=== PATIENT | male | born 1940 | race Caucasian/White ===

== ENCOUNTER 2018-03-16 12:02 | Inpatient (IN) | payer MEDICARE ==
[2018-03-16] MEDS ORDERED: Labetalol 100 MG/20 ML MDV IVPUSH ONE (12:50)
--- NOTE | 2018-03-16 12:55 | EDM.PDOC ---
ED HPI GENERAL MEDICAL PROBLEM - General Chief Complaint: Neurological Problem Stated Complaint: confusion Time Seen by Provider: 03/16/18 12:30 Source of Information: Reports: EMS, Family History Limitations: Reports: Altered Mental Status - History of Present Illness INITIAL COMMENTS - FREE TEXT/NARRATIVE: Jerzy is a 77 year old male who presents to the ED via [facility] with c/o AMS. Apparently patient did not show up for breakfast per usual at neighbors this morning so neighbor went to house to check on him. Found patient to be very confused. Reports he went to car and tried to start car with wallet and cellphone rather than keys. Reports patient had slurred speech and was much more confused than baseline so called EMS. Do report he has been more confused over the last month or so. Does have dementia. Daughter reports that the last month or so patient has also been incontinent of urine and his hygiene hasn't been as good. Last known well last evening. NIH 5 upon presentation. Very hard to perform neuro assessment as patient is confused and does not follow commands. Unable to obtain ROS due to AMS. Associated Symptoms: Reports: Confusion. Denies: Chest Pain, Cough, cough w sputum, Malaise, Syncope - Related Data Allergies Allergy/AdvReac Type Severity Reaction Status Date / Time [place]-Y[place]-Rad Reductase Allergy Other Verified 03/16/18 16:15 Inhibitor Home Meds: Home Meds Aspirin/Calcium Carbonate/Mag [Aspirin Buffered 325 mg Tab] 325 mg PO DAILY [History] Lisinopril/Hydrochlorothiazide [Zestoretic 20-12.5 mg Tablet] 1 each PO DAILY [History] Ubidecarenone [Co Q-10 ER] 100 mg PO BID 10/24/13 [History] metFORMIN HCl [Metformin HCl] 1,000 mg PO BID 10/24/13 [History] Cholecalciferol (Vitamin D3) [Vitamin D3] 4,000 unit PO BID 03/16/18 [History] Donepezil HCl [Aricept] 15 mg PO BEDTIME 03/16/18 [History] Gluc 2KCl/Chondr/Jonathan Hy/Hy Ac [Glucosamine & Chondroitin Cap] 1 cap PO BID 08/25 [History] Lutein/Minerals/Vit A,C & E [I-Garrick] 1 tab PO BID 03/16/18 [History] Red Yeast Rice 1 cap PO DAILY 03/16/18 [History] ED ROS GENERAL - Review of Systems Review Of Systems: Unable To Obtain (AMS) ED EXAM, NEURO - Physical Exam Exam: See Below Exam Limited By: Altered Mental Status General Appearance: Alert, WD/WN, No Apparent Distress, Other (unkempt, smells of urine) Eye Exam: Bilateral Eye: EOMI, Normal Fundi, Normal Inspection, PERRL Ears: Normal External Exam, Normal Canal, Hearing Grossly Normal, Normal TMs Nose: Normal Inspection, Normal Mucosa, No Blood Throat/Mouth: Normal Inspection, Normal Lips, Normal Teeth, Normal Gums, Normal Oropharynx, Normal Voice, No Airway Compromise Head Exam: Atraumatic, Normocephalic Neck: Normal Inspection, Supple, Non-Tender, Full Range of Motion Respiratory/Chest: No Respiratory Distress, Lungs Clear, Normal Breath Sounds, No Accessory Muscle Use, Chest Non-Tender Cardiovascular: Normal Peripheral Pulses, Regular Rate, Rhythm, No Edema, No Gallop, No JVD, No Murmur, No Rub GI/Abdominal: Normal Bowel Sounds, Soft, Non-Tender, No Organomegaly, No Distention, No Abnormal Bruit, No Mass Neurological: Alert, Normal Gait, No Motor/Sensory Deficits, Other (oriented to self only, disoriented to time, place, and situation) Back Exam: Normal Inspection, Full Range of Motion. No: CVA Tenderness (L), CVA Tenderness (R) Extremities: Normal Inspection, Normal Range of Motion, Non-Tender, No Pedal Edema, Normal Capillary Refill Course - Vital Signs Last Recorded V/S: Last Vital Signs Temp 99.1 F 03/16/18 20:00 Pulse 80 03/16/18 21:34 Resp 20 03/16/18 20:00 BP 194/90 H 03/16/18 21:34 Pulse Ox 96 03/16/18 20:00 - Orders/Labs/Meds Orders: Active Orders 24 hr Category Date Time Status Chest 1V Frontal [CR] Stat Exams 03/16/18 14:23 Taken Head wo Cont [CT] Routine Exams 03/16/18 Taken MISC TEST Stat Lab 03/16/18 13:57 Received Medication Orders Ceftriaxone Sodium (Rocephin) 1 gm IVPUSH 1600 [facility] Last Admin: 03/16/18 17:09 Dose: 1 gm Donepezil HCl (Aricept) 15 mg PO BEDTIME [facility] Last Admin: 03/16/18 19:34 Dose: 15 mg Enoxaparin Sodium (Lovenox) 40 mg SUBCUT 1600 [facility] Last Admin: 03/16/18 17:14 Dose: 40 mg Hydrochlorothiazide (Hydrochlorothiazide) 12.5 mg PO DAILY [facility] Sodium Chloride (Normal Saline) 1,000 mls @ 75 mls/hr IV ASDIRECTED [facility] Last Admin: 03/16/18 21:39 Dose: 75 mls/hr Insulin Aspart (Novolog) 0 unit SUBCUT WITHMEALSANDBED [facility]; Protocol Lisinopril (Prinivil) 20 mg PO DAILY [facility] Labs: Laboratory Tests 03/16/18 03/16/18 03/16/18 Range/Units 12:53 13:00 13:25 WBC 7.4 (5.0-10.0) 10^3/uL RBC 4.66 (4.50-6.00) 10^6/uL Hgb 14.6 (14.0-18.0) g/dL Hct 43.2 (40.0-54.0) % MCV 92.7 (82.0-94.0) fL MCH 31.3 (27.0-32.0) pg MCHC 33.8 (33.0-38.0) g/dL RDW Coeff of Raz 12.8 (11.0-15.0) % Plt Count 156 (150-400) 10^3/uL Neut % (Auto) 76.8 (35-85) % Lymph % (Auto) 12.5 (10-55) % [place] % (Auto) 6.9 (0-16) % Eos % (Auto) 3.5 (0-5) % Baso % (Auto) 0.3 (0-3) % Neut # (Auto) 5.70 (1.80-7.00) 10^3/uL Lymph # (Auto) 0.93 L (1.00-4.80) 10^3/uL [place] # (Auto) 0.51 (0.00-0.80) 10^3/uL Eos # (Auto) 0.26 (0.00-0.45) 10^3/uL Baso # (Auto) 0.02 10^3/uL PT (9.7-12.3) SEC INR (0.92-1.18) APTT (23.2-32.3) SEC Sodium 141 (136-145) mEq/L Potassium 4.2 (3.5-5.0) mEq/L Chloride 104 (98-106) mEq/L Carbon Dioxide 28 (21-32) mmol/L BUN 12 (7-18) mg/dL Creatinine 1.2 (0.7-1.3) mg/dL Est Cr Clr Drug Dosing TNP Estimated GFR (MDRD) 59 L (>=60) mL/min Glucose 174 H D (75-99) mg/dL Calcium 9.1 (8.4-10.1) mg/dL Creatine Kinase 99 (35-232) U/L Troponin I < 0.017 (0.00-0.06) ng/mL Vitamin B12 643 (193-986) PG/ML 03/16/18 Range/Units 13:26 WBC (5.0-10.0) 10^3/uL RBC (4.50-6.00) 10^6/uL Hgb (14.0-18.0) g/dL Hct (40.0-54.0) % MCV (82.0-94.0) fL MCH (27.0-32.0) pg MCHC (33.0-38.0) g/dL RDW Coeff of Raz (11.0-15.0) % Plt Count (150-400) 10^3/uL Neut % (Auto) (35-85) % Lymph % (Auto) (10-55) % [place] % (Auto) (0-16) % Eos % (Auto) (0-5) % Baso % (Auto) (0-3) % Neut # (Auto) (1.80-7.00) 10^3/uL Lymph # (Auto) (1.00-4.80) 10^3/uL [place] # (Auto) (0.00-0.80) 10^3/uL Eos # (Auto) (0.00-0.45) 10^3/uL Baso # (Auto) 10^3/uL PT 11.2 (9.7-12.3) SEC INR 1.08 (0.92-1.18) APTT 23.8 (23.2-32.3) SEC Sodium (136-145) mEq/L Potassium (3.5-5.0) mEq/L Chloride (98-106) mEq/L Carbon Dioxide (21-32) mmol/L BUN (7-18) mg/dL Creatinine (0.7-1.3) mg/dL Est Cr Clr Drug Dosing Estimated GFR (MDRD) (>=60) mL/min Glucose (75-99) mg/dL Calcium (8.4-10.1) mg/dL Creatine Kinase (35-232) U/L Troponin I (0.00-0.06) ng/mL Vitamin B12 (193-986) PG/ML Meds: Medications Generic Name Dose Route Start Last Admin Trade Name Freq PRN Reason Stop Dose Admin Ceftriaxone Sodium 1 gm 03/16/18 16:45 03/16/18 17:09 Rocephin IVPUSH 1 gm 1600 GABBI Administration Donepezil HCl 15 mg 03/16/18 20:00 03/16/18 19:34 Aricept PO 15 mg BEDTIME [facility] Administration Enoxaparin Sodium 40 mg 03/16/18 16:38 03/16/18 17:14 Lovenox SUBCUT 40 mg 1600 [facility] Administration Hydrochlorothiazide 12.5 mg 03/17/18 17:45 Hydrochlorothiazide PO DAILY [facility] Sodium Chloride 1,000 mls @ 75 mls/hr 03/16/18 21:00 03/16/18 21:39 Normal Saline IV 75 mls/hr ASDIRECTED [facility] Administration Insulin Aspart 0 unit 03/17/18 08:00 Novolog SUBCUT WITHMEALSANDBED [facility] Protocol Lisinopril 20 mg 03/17/18 17:45 Prinivil PO DAILY [facility] Discontinued Medications Generic Name Dose Route Start Last Admin Trade Name Freq PRN Reason Stop Dose Admin Heparin Sodium (Porcine) Confirm 03/16/18 13:47 03/16/18 15:55 Heparin Lock Flush 100 Units/Ml Administered 03/16/18 13:48 Not Given Dose 1,000 units .ROUTE .STK-MED ONE Heparin Sodium (Porcine) Confirm 03/16/18 13:51 03/16/18 15:55 Heparin Lock Flush 100 Units/Ml Administered 03/16/18 13:52 Not Given Dose 500 units .ROUTE .STK-MED ONE Heparin Sodium (Porcine) 500 units 03/16/18 15:53 03/16/18 14:50 Heparin Lock Flush 100 Units/Ml FLUSH 500 units ASDIRECTED PRN Administration Other Sodium Chloride Confirm 03/16/18 14:44 03/16/18 15:55 Normal Saline Administered 03/16/18 14:45 Not Given Dose 1,000 mls @ as directed .ROUTE .STK-MED ONE Sodium Chloride 1,000 mls @ 125 mls/hr 03/16/18 15:20 03/16/18 15:20 Normal Saline IV 03/16/18 23:19 125 mls/hr ASDIRECTED [facility] Administration Labetalol HCl 20 mg 03/16/18 12:50 03/16/18 15:51 Normodyne IVPUSH 03/16/18 12:51 Not Given ONETIME ONE Protocol Metoprolol Tartrate 5 mg 03/16/18 20:44 03/16/18 21:34 Lopressor IVPUSH 03/16/18 20:45 5 mg ONETIME ONE Administration Neomycin/Polymyxin/Bacitracin Confirm 03/16/18 14:10 03/16/18 15:55 Triple Antibiotic Oint Administered 03/16/18 14:11 Not Given Dose 1 each .ROUTE .STK-MED ONE Neomycin/Polymyxin/Bacitracin 1 each 03/16/18 15:54 03/16/18 15:10 Triple Antibiotic Oint TOP 03/16/18 15:55 1 each ONETIME ONE Administration Non-Formulary Medication 1 each 03/16/18 17:30 03/16/18 18:29 Lisinopril/Hydrochlorothiazide [Zestoretic 20-12.5 Mg Tablet] PO Not Given DAILY [facility] - Radiology Interpretation Free Text/Narrative:: Head CT negative for acute changes. Does show small vessel ischemic changes and atrophy. CT Results Date: 03/16/18 CT Results Time: 12:47 - Re-Assessments/Exams Free Text/Narrative Re-Assessment/Exam: Multiple attempts were made for lab draws and peripheral IV start. Eventually, were able to get labs from right AC. Nursing staff attempted multiple IV starts without success. Consulted with anesthesia, who was unavailable. Consulted with general surgery, Dr. Parker, who placed left subclavian central line without difficulty. See consult note for further documentation. Placement confirmed with Chest Xray. Chest xray also negative for infiltrate or acute findings. Discussed with patients daughter, Magda Vyas, who relays that she is proof clerk in [place]. She has concerns re: carbon monoxide. Did relay that we did draw level on patient. Discussed normal lab work other than positive UA indicating UTI. Discussed normal head CT. She currently resides in [place]. Discussed that with weather currently, we are unable to transport patient to [place]. Daughter agreeable to transfer tomorrow if mental status does not improve. Discussed that we will hydrate him and start IV antibiotics. Departure - Departure Time of Disposition: 15:01 Disposition: Admitted As Inpatient 66 Condition: Fair Clinical Impression: Altered mental status Qualifiers: Altered mental status type: transient alteration of awareness Qualified Code(s) : R40.4 - Transient alteration of awareness UTI (urinary tract infection) Qualifiers: Urinary tract infection type: acute cystitis Hematuria presence: without hematuria Qualified Code(s): N30.00 - Acute cystitis without hematuria Hypertension Qualifiers: Hypertension type: unspecified Qualified Code(s): I10 - Essential (primary) hypertension Type 2 diabetes mellitus Qualifiers: Diabetes mellitus medical scientific officer insulin use: without medical scientific officer use - Discharge Information *PRESCRIPTION DRUG MONITORING PROGRAM REVIEWED*: Not Applicable *COPY OF PRESCRIPTION DRUG MONITORING REPORT IN PATIENT FELICITA: Not Applicable - Problem List & Annotations (1) Altered mental status SNOMED Code(s): 214533540 Code(s): R41.82 - ALTERED MENTAL STATUS, UNSPECIFIED Status: Acute Current Visit: No Qualifiers: Altered mental status type: transient alteration of awareness Qualified Code(s): R40.4 - Transient alteration of awareness (2) UTI (urinary tract infection) SNOMED Code(s): 84716194 Code(s): N39.0 - URINARY TRACT INFECTION, SITE NOT SPECIFIED Status: Acute Current Visit: Yes Qualifiers: Urinary tract infection type: acute cystitis Hematuria presence: without hematuria Qualified Code(s): N30.00 - Acute cystitis without hematuria (3) Hypertension SNOMED Code(s): 16683371 Code(s): I10 - ESSENTIAL (PRIMARY) HYPERTENSION Status: Acute Current Visit: Yes Qualifiers: Hypertension type: unspecified Qualified Code(s): I10 - Essential (primary ) hypertension (4) Type 2 diabetes mellitus SNOMED Code(s): 15406784 Code(s): E11.9 - TYPE 2 DIABETES MELLITUS WITHOUT COMPLICATIONS Status: Chronic Current Visit: Yes Qualifiers: Diabetes mellitus medical scientific officer insulin use: without medical scientific officer use - Problem List Review Problem List Initiated/Reviewed/Updated: Yes - My Orders Last 24 Hours: My Active Orders 03/16/18 Head wo Cont [CT] Routine 03/16/18 13:57 MISC TEST Stat 03/16/18 14:23 Chest 1V Frontal [CR] Stat - Assessment/Plan Admission H&P: Please use this note as an admission H&P Last 24 Hours: My Active Orders 03/16/18 Head wo Cont [CT] Routine 03/16/18 13:57 MISC TEST Stat 03/16/18 14:23 Chest 1V Frontal [CR] Stat Assessment:: 1. Altered Mental Status 2. UTI 3. Hypertension 4. Diabetes Plan: 1. Head CT negative. Awaiting carbon monoxide level. I do suspect AMS is in relation to UTI. 2. Will start IV Rocephin and await urine culture results. Gentle IV hydration. NS @ 75. Will plan to remove central line and place peripheral line once patient is hydrated. 3. Will resume home medications. Lopressor x 1. Close monitoring of VS. 4. QID Accu Checks. Sliding scale. Hold Metformin. Will follow daily labs. If no improvement in mental status, will arrange for transfer to [facility] in am. Daughter was agreeable with plan.
[2018-03-16 13:45] LABS: CHLORIDE,CL 104 mEq/L (98-106); SODIUM,NA 141 mEq/L (136-145)
[2018-03-16] MEDS ORDERED: Bacitracin/Neomycin/Polymyxin B Oint 0.9 GM U/D Packet ONE (14:10)
[2018-03-16] MEDS ORDERED: Sodium Chloride 0.9% 1,000 ML ONE (14:44)
[2018-03-16] MEDS ORDERED: Sodium Chloride 0.9% 1,000 ML IV SCH (15:20)
[2018-03-16] MEDS ORDERED: Bacitracin/Neomycin/Polymyxin B Oint 0.9 GM U/D Packet TOP ONE (15:54)
[2018-03-16] MEDS: cefTRIAXone 1 GM Vial IVPUSH SCH (17:09)
[2018-03-16] MEDS: Enoxaparin 40 MG/0.4 ML Syringe SUBCUT SCH (17:14)
[2018-03-16] MEDS ORDERED: Non-Formulary Medication 1 Each (Lisinopril/Hydrochlorothiazide [Zestoretic 20-12.5 Mg Tab PO SCH (17:30)
--- NOTE | 2018-03-16 19:33 | OR ---
DATE OF OPERATION: 03/16/2018 EMERGENCY ROOM PROCEDURE ANESTHESIA: Local. INDICATIONS: This 77-year-old male presented to the emergency room with symptoms consistent with stroke. He is also hypertensive. He has had 6 or 7 attempts at starting peripheral IVs, none of which have been successful. A central line was requested. DESCRIPTION OF PROCEDURE: After adequate preparation, a left subclavian line was placed. This went without any difficulty. The postoperative placement was confirmed by a portable chest x-ray, which showed the tip of the catheter in the junction of the brachiocephalic vein and superior vena cava. I could not advance the catheter any further than that, but this was adequate and I got good flow return through the catheter, and this was then anchored in place. The catheter may be used. PROCEDURE: PLACEMENT OF LEFT SUBCLAVIAN VEIN CENTRAL LINE. BPB/PRECIOUSL /[id number]
[2018-03-16] MEDS: Donepezil 5 MG Tab PO SCH (19:34)
[2018-03-16] MEDS ORDERED: Metoprolol Tartrate 5 MG/5 ML SDV IVPUSH ONE (20:44)
[2018-03-16] MEDS: Sodium Chloride 0.9% 1,000 ML IV SCH (21:39)
[2018-03-17] MEDS: Hydrochlorothiazide 12.5 MG Cap PO SCH ×2 (06:02→07:57)
[2018-03-17] MEDS: Lisinopril 20 MG Tab PO SCH ×2 (06:03→07:57)
[2018-03-17 07:16] LABS: CHLORIDE,CL 107 mEq/L (98-106); SODIUM,NA 141 mEq/L (136-145)
[2018-03-17] MEDS: Insulin Aspart 100 Units/ML 3 ML Pen SUBCUT SCH ×4 (07:43→21:10)
--- NOTE | 2018-03-17 08:46 | PCM.PN ---
- General Info Date of Service: 03/17/18 Subjective Update: Jerzy is a 77 year old male who was admitted to the hospital yesterday with AMS and UTI. He reports he is feeling much better this morning. Reports he is less confused. He is oriented to person, place, and time. Yesterday he was disoriented except to person. He does not have any neurologic deficit. Nursing staff report he has been up to the bathroom frequently, but this also seems to be improving. He has been eating and drinking without difficulty. He does not recall much of yesteday, but does note he was very confused. His blood pressure has been running quite elevated. Patient does not have any c/o chest pain, shortness of breath, dizziness, vision changes. He also denies any flank pain. Does report that he does recall the past few weeks he has had some burning with urination, but does feel this has improved some today as well. No other complaints. He is resting comfortably in bed at time of rounds. Has been up ambulatory per self. Functional Status: Reports: Pain Controlled, Tolerating Diet, Ambulating, Urinating. Denies: New Symptoms - Review of Systems General: Reports: No Symptoms. Denies: Fever, Weakness, Fatigue, Malaise, Chills Pulmonary: Reports: No Symptoms. Denies: Shortness of Breath, Cough, Sputum Cardiovascular: Reports: No Symptoms. Denies: Chest Pain, Dyspnea on Exertion, Lightheadedness Gastrointestinal: Reports: No Symptoms. Denies: Abdominal Pain, Decreased Appetite, Diarrhea, Nausea, Vomiting Genitourinary: Reports: Dysuria, Frequency, Burning, Urgency. Denies: Hematuria , Flank Pain Musculoskeletal: Reports: No Symptoms Skin: Reports: No Symptoms Neurological: Reports: Confusion (improving). Denies: Dizziness, Headache, Numbness, Tingling, Weakness, Gait Disturbance Psychiatric: Reports: No Symptoms - Patient Data Vitals - Most Recent: Last Vital Signs Temp 98.5 F 03/17/18 07:43 Pulse 67 03/17/18 07:43 Resp 20 03/17/18 07:43 BP 213/90 H 03/17/18 07:43 Pulse Ox 97 03/17/18 07:43 Weight - Most Recent: 251 lb 4.8 oz Lab Results Last 24 Hours: Laboratory Results - last 24 hr 03/16/18 03/16/18 03/16/18 Range/Units 12:53 13:00 13:25 WBC 7.4 (5.0-10.0) 10^3/uL RBC 4.66 (4.50-6.00) 10^6/uL Hgb 14.6 (14.0-18.0) g/dL Hct 43.2 (40.0-54.0) % MCV 92.7 (82.0-94.0) fL MCH 31.3 (27.0-32.0) pg MCHC 33.8 (33.0-38.0) g/dL RDW Coeff of Raz 12.8 (11.0-15.0) % Plt Count 156 (150-400) 10^3/uL Neut % (Auto) 76.8 (35-85) % Lymph % (Auto) 12.5 (10-55) % [place] % (Auto) 6.9 (0-16) % Eos % (Auto) 3.5 (0-5) % Baso % (Auto) 0.3 (0-3) % Neut # (Auto) 5.70 (1.80-7.00) 10^3/uL Lymph # (Auto) 0.93 L (1.00-4.80) 10^3/uL [place] # (Auto) 0.51 (0.00-0.80) 10^3/uL Eos # (Auto) 0.26 (0.00-0.45) 10^3/uL Baso # (Auto) 0.02 10^3/uL PT (9.7-12.3) SEC INR (0.92-1.18) APTT (23.2-32.3) SEC Sodium 141 (136-145) mEq/L Potassium 4.2 (3.5-5.0) mEq/L Chloride 104 (98-106) mEq/L Carbon Dioxide 28 (21-32) mmol/L BUN 12 (7-18) mg/dL Creatinine 1.2 (0.7-1.3) mg/dL Est Cr Clr Drug Dosing TNP Estimated GFR (MDRD) 59 L (>=60) mL/min Glucose 174 H D (75-99) mg/dL POC Glucose (75-105) mg/dl Calcium 9.1 (8.4-10.1) mg/dL Creatine Kinase 99 (35-232) U/L Troponin I < 0.017 (0.00-0.06) ng/mL C-Reactive Protein (0.2-0.8) mg/dL Vitamin B12 643 (193-986) PG/ML Urine Color (YELLOW) Urine Appearance (CLEAR) Urine pH (4.5-8.0) Ur Specific [place] (1.003-1.020) Urine Protein (NEGATIVE) mg/dL Urine Glucose (UA) (NEGATIVE) mg/dL Urine Ketones (NEGATIVE) mg/dL Urine Occult Blood (NEGATIVE) Urine Nitrite (NEGATIVE) Urine Bilirubin (NEGATIVE) Urine Urobilinogen (0.2-1.0) EU/dL Ur Leukocyte Esterase (NEGATIVE) Urine RBC (0-5) /HPF Urine WBC (0-5) /HPF Urine Bacteria (NOT SEEN) /HPF Urine Opiates Screen (NEGATIVE) Ur Oxycodone Screen (NEGATIVE) Urine Methadone Screen (NEGATIVE) Ur Barbiturates Screen (NEGATIVE) U Tricyclic Antidepress (NEGATIVE) Ur Phencyclidine Scrn (NEGATIVE) Ur Amphetamine Screen (NEGATIVE) U Methamphetamines Scrn (NEGATIVE) Urine MDMA Screen (NEGATIVE) U Benzodiazepines Scrn (NEGATIVE) Urine Cocaine Screen (NEGATIVE) U Marijuana (THC) Screen (NEGATIVE) 03/16/18 03/16/18 03/16/18 Range/Units 13:26 16:05 16:05 WBC (5.0-10.0) 10^3/uL RBC (4.50-6.00) 10^6/uL Hgb (14.0-18.0) g/dL Hct (40.0-54.0) % MCV (82.0-94.0) fL MCH (27.0-32.0) pg MCHC (33.0-38.0) g/dL RDW Coeff of Raz (11.0-15.0) % Plt Count (150-400) 10^3/uL Neut % (Auto) (35-85) % Lymph % (Auto) (10-55) % [place] % (Auto) (0-16) % Eos % (Auto) (0-5) % Baso % (Auto) (0-3) % Neut # (Auto) (1.80-7.00) 10^3/uL Lymph # (Auto) (1.00-4.80) 10^3/uL [place] # (Auto) (0.00-0.80) 10^3/uL Eos # (Auto) (0.00-0.45) 10^3/uL Baso # (Auto) 10^3/uL PT 11.2 (9.7-12.3) SEC INR 1.08 (0.92-1.18) APTT 23.8 (23.2-32.3) SEC Sodium (136-145) mEq/L Potassium (3.5-5.0) mEq/L Chloride (98-106) mEq/L Carbon Dioxide (21-32) mmol/L BUN (7-18) mg/dL Creatinine (0.7-1.3) mg/dL Est Cr Clr Drug Dosing Estimated GFR (MDRD) (>=60) mL/min Glucose (75-99) mg/dL POC Glucose (75-105) mg/dl Calcium (8.4-10.1) mg/dL Creatine Kinase (35-232) U/L Troponin I (0.00-0.06) ng/mL C-Reactive Protein (0.2-0.8) mg/dL Vitamin B12 (193-986) PG/ML Urine Color Yellow (YELLOW) Urine Appearance Cloudy (CLEAR) Urine pH 7.0 (4.5-8.0) Ur Specific [place] 1.025 H (1.003-1.020) Urine Protein >=300 H (NEGATIVE) mg/dL Urine Glucose (UA) Negative (NEGATIVE) mg/dL Urine Ketones Trace H (NEGATIVE) mg/dL Urine Occult Blood Moderate H (NEGATIVE) Urine Nitrite Negative (NEGATIVE) Urine Bilirubin Negative (NEGATIVE) Urine Urobilinogen 0.2 (0.2-1.0) EU/dL Ur Leukocyte Esterase Large H (NEGATIVE) Urine RBC 50-75 H (0-5) /HPF Urine WBC Packed H (0-5) /HPF Urine Bacteria Many H (NOT SEEN) /HPF Urine Opiates Screen Negative (NEGATIVE) Ur Oxycodone Screen Negative (NEGATIVE) Urine Methadone Screen Negative (NEGATIVE) Ur Barbiturates Screen Negative (NEGATIVE) U Tricyclic Antidepress Negative (NEGATIVE) Ur Phencyclidine Scrn Negative (NEGATIVE) Ur Amphetamine Screen Negative (NEGATIVE) U Methamphetamines Scrn Negative (NEGATIVE) Urine MDMA Screen Negative (NEGATIVE) U Benzodiazepines Scrn Negative (NEGATIVE) Urine Cocaine Screen Negative (NEGATIVE) U Marijuana (THC) Screen Negative (NEGATIVE) 03/17/18 03/17/18 03/17/18 Range/Units 06:50 06:50 07:15 WBC 7.1 (5.0-10.0) 10^3/uL RBC 4.57 (4.50-6.00) 10^6/uL Hgb 14.3 (14.0-18.0) g/dL Hct 42.7 (40.0-54.0) % MCV 93.4 (82.0-94.0) fL MCH 31.3 (27.0-32.0) pg MCHC 33.5 (33.0-38.0) g/dL RDW Coeff of Raz 12.9 (11.0-15.0) % Plt Count 161 (150-400) 10^3/uL Neut % (Auto) 64.4 (35-85) % Lymph % (Auto) 20.7 (10-55) % [place] % (Auto) 11.8 (0-16) % Eos % (Auto) 2.5 (0-5) % Baso % (Auto) 0.6 (0-3) % Neut # (Auto) 4.57 (1.80-7.00) 10^3/uL Lymph # (Auto) 1.47 (1.00-4.80) 10^3/uL [place] # (Auto) 0.84 H (0.00-0.80) 10^3/uL Eos # (Auto) 0.18 (0.00-0.45) 10^3/uL Baso # (Auto) 0.04 10^3/uL PT (9.7-12.3) SEC INR (0.92-1.18) APTT (23.2-32.3) SEC Sodium 141 (136-145) mEq/L Potassium 3.5 (3.5-5.0) mEq/L Chloride 107 H (98-106) mEq/L Carbon Dioxide 27 (21-32) mmol/L BUN 11 (7-18) mg/dL Creatinine 1.1 (0.7-1.3) mg/dL Est Cr Clr Drug Dosing 58.07 Estimated GFR (MDRD) > 60 (>=60) mL/min Glucose 164 H (75-99) mg/dL POC Glucose 141 H (75-105) mg/dl Calcium 8.7 (8.4-10.1) mg/dL Creatine Kinase (35-232) U/L Troponin I (0.00-0.06) ng/mL C-Reactive Protein 0.7 (0.2-0.8) mg/dL Vitamin B12 (193-986) PG/ML Urine Color (YELLOW) Urine Appearance (CLEAR) Urine pH (4.5-8.0) Ur Specific [place] (1.003-1.020) Urine Protein (NEGATIVE) mg/dL Urine Glucose (UA) (NEGATIVE) mg/dL Urine Ketones (NEGATIVE) mg/dL Urine Occult Blood (NEGATIVE) Urine Nitrite (NEGATIVE) Urine Bilirubin (NEGATIVE) Urine Urobilinogen (0.2-1.0) EU/dL Ur Leukocyte Esterase (NEGATIVE) Urine RBC (0-5) /HPF Urine WBC (0-5) /HPF Urine Bacteria (NOT SEEN) /HPF Urine Opiates Screen (NEGATIVE) Ur Oxycodone Screen (NEGATIVE) Urine Methadone Screen (NEGATIVE) Ur Barbiturates Screen (NEGATIVE) U Tricyclic Antidepress (NEGATIVE) Ur Phencyclidine Scrn (NEGATIVE) Ur Amphetamine Screen (NEGATIVE) U Methamphetamines Scrn (NEGATIVE) Urine MDMA Screen (NEGATIVE) U Benzodiazepines Scrn (NEGATIVE) Urine Cocaine Screen (NEGATIVE) U Marijuana (THC) Screen (NEGATIVE) Med Orders - Current: Current Medications Amlodipine Besylate (Norvasc) 5 mg PO DAILY [facility] Ceftriaxone Sodium (Rocephin) 1 gm IVPUSH 1600 [facility] Last Admin: 03/16/18 17:09 Dose: 1 gm Donepezil HCl (Aricept) 15 mg PO BEDTIME [facility] Last Admin: 03/16/18 19:34 Dose: 15 mg Enoxaparin Sodium (Lovenox) 40 mg SUBCUT 1600 [facility] Last Admin: 03/16/18 17:14 Dose: 40 mg Hydrochlorothiazide (Hydrochlorothiazide) 12.5 mg PO DAILY [facility] Last Admin: 03/17/18 07:57 Dose: Not Given Sodium Chloride (Normal Saline) 1,000 mls @ 75 mls/hr IV ASDIRECTED [facility] Last Admin: 03/16/18 21:39 Dose: 75 mls/hr Insulin Aspart (Novolog) 0 unit SUBCUT WITHMEALSANDBED GABBI; Protocol Last Admin: 03/17/18 07:43 Dose: Not Given Lisinopril (Prinivil) 20 mg PO DAILY [facility] Last Admin: 03/17/18 07:57 Dose: Not Given Discontinued Medications Heparin Sodium (Porcine) (Heparin Lock Flush 100 Units/Ml) Confirm Administered Dose 1,000 units .ROUTE .STK-MED ONE Stop: 03/16/18 13:48 Last Admin: 03/16/18 15:55 Dose: Not Given Heparin Sodium (Porcine) (Heparin Lock Flush 100 Units/Ml) Confirm Administered Dose 500 units .ROUTE .STK-MED ONE Stop: 03/16/18 13:52 Last Admin: 03/16/18 15:55 Dose: Not Given Heparin Sodium (Porcine) (Heparin Lock Flush 100 Units/Ml) 500 units FLUSH ASDIRECTED PRN PRN Reason: Other Last Admin: 03/16/18 14:50 Dose: 500 units Hydrochlorothiazide (Hydrochlorothiazide) 12.5 mg PO DAILY [facility] Sodium Chloride (Normal Saline) Confirm Administered Dose 1,000 mls @ as directed .ROUTE .STK-MED ONE Stop: 03/16/18 14:45 Last Admin: 03/16/18 15:55 Dose: Not Given Sodium Chloride (Normal Saline) 1,000 mls @ 125 mls/hr IV ASDIRECTED [facility] Stop: 03/16/18 23:19 Last Admin: 03/16/18 15:20 Dose: 125 mls/hr Labetalol HCl (Normodyne) 20 mg IVPUSH ONETIME ONE; Protocol Stop: 03/16/18 12:51 Last Admin: 03/16/18 15:51 Dose: Not Given Lisinopril (Prinivil) 20 mg PO DAILY [facility] Metoprolol Tartrate (Lopressor) 5 mg IVPUSH ONETIME ONE Stop: 03/16/18 20:45 Last Admin: 03/16/18 21:34 Dose: 5 mg Neomycin/Polymyxin/Bacitracin (Triple Antibiotic Oint) Confirm Administered Dose 1 each .ROUTE .STK-MED ONE Stop: 03/16/18 14:11 Last Admin: 03/16/18 15:55 Dose: Not Given Neomycin/Polymyxin/Bacitracin (Triple Antibiotic Oint) 1 each TOP ONETIME ONE Stop: 03/16/18 15:55 Last Admin: 03/16/18 15:10 Dose: 1 each Non-Formulary Medication (Lisinopril/Hydrochlorothiazide [Zestoretic 20-12.5 Mg Tablet]) 1 each PO DAILY [facility] Last Admin: 03/16/18 18:29 Dose: Not Given - Exam Quality Assessment: DVT Prophylaxis General: Alert, Oriented, No Acute Distress Neck: Supple Lungs: Clear to Auscultation, Normal Respiratory Effort Cardiovascular: Regular Rate, Regular Rhythm GI/Abdominal Exam: Normal Bowel Sounds, Soft, Non-Tender, No Organomegaly, No Distention, No Abnormal Bruit, No Mass, Pelvis Stable Back Exam: Normal Inspection, Full Range of Motion. No: CVA Tenderness (L), CVA Tenderness (R) Extremities: Normal Inspection, Normal Range of Motion, Non-Tender, No Pedal Edema, Normal Capillary Refill Neurological: No New Focal Deficit Psy/Mental Status: Alert, Normal Affect, Normal Mood - Problem List & Annotations (1) Altered mental status SNOMED Code(s): 141635944 Code(s): R41.82 - ALTERED MENTAL STATUS, UNSPECIFIED Status: Acute Current Visit: No Qualifiers: Altered mental status type: transient alteration of awareness Qualified Code(s): R40.4 - Transient alteration of awareness (2) UTI (urinary tract infection) SNOMED Code(s): 20187943 Code(s): N39.0 - URINARY TRACT INFECTION, SITE NOT SPECIFIED Status: Acute Current Visit: Yes Qualifiers: Urinary tract infection type: acute cystitis Hematuria presence: without hematuria Qualified Code(s): N30.00 - Acute cystitis without hematuria (3) Hypertension SNOMED Code(s): 07488173 Code(s): I10 - ESSENTIAL (PRIMARY) HYPERTENSION Status: Acute Current Visit: Yes Qualifiers: Hypertension type: unspecified Qualified Code(s): I10 - Essential (primary ) hypertension (4) Type 2 diabetes mellitus SNOMED Code(s): 07708581 Code(s): E11.9 - TYPE 2 DIABETES MELLITUS WITHOUT COMPLICATIONS Status: Chronic Current Visit: Yes Qualifiers: Diabetes mellitus market development trainer insulin use: without market development trainer use - Problem List Review Problem List Initiated/Reviewed/Updated: Yes - My Orders Last 24 Hours: My Active Orders 03/16/18 13:57 MISC TEST Stat 02/07/19 14:23 Chest 1V Frontal [CR] Stat 03/16/18 15:48 Resuscitation Status Routine 03/16/18 16:05 CULTURE URINE [RM] Stat 03/16/18 16:38 Patient Status [ADT] Routine Cardiac Monitoring [RC] 0800,2000 Oxygen Therapy [RC] .PRN Pulse Oximetry [RC] .PRN Vital Signs [RC] 0000,0400,0800,1200,1600,2000 Enoxaparin [Lovenox] 40 mg SUBCUT 1600 03/16/18 16:45 cefTRIAXone [Rocephin] 1 gm IVPUSH 1600 03/16/18 20:00 Donepezil [Aricept] 15 mg PO BEDTIME 03/16/18 21:00 Sodium Chloride 0.9% [Normal Saline] 1,000 ml IV ASDIRECTED 03/16/18 21:32 Blood Glucose Check, Bedside [RC] 0730,1130,1730,2100 03/16/18 23:34 Antiembolic Devices [RC] 1000,2200 ALISON Hose [Antiembolic Hose] [OM.PC] Routine 03/16/18 Dinner Consistent Carbohydrate Diet [DIET] 03/17/18 08:00 Insulin Aspart [NovoLOG] See Protocol SUBCUT WITHMEALSANDBED Lisinopril [Prinivil] 20 mg PO DAILY hydroCHLOROthiazide 12.5 mg PO DAILY 03/17/18 08:45 amLODIPine [Norvasc] 5 mg PO DAILY 03/18/18 05:36 BMP [BASIC METABOLIC PANEL,BMP] [CHEM] DAILY 03/18/18 05:45 C-REACTIVE PROTEIN [CHEM] DAILY CBC WITH AUTO DIFF [HEME] DAILY 03/19/18 05:36 BMP [BASIC METABOLIC PANEL,BMP] [CHEM] DAILY 03/19/18 05:45 C-REACTIVE PROTEIN [CHEM] DAILY CBC WITH AUTO DIFF [HEME] DAILY - Assessment Assessment:: 1) AMS 2) UTI 3) Hypertension 4) Type II DM - Plan Plan:: 1) AMS is improving. Patient is much more alert today. He is oriented to person , place, and time. He recalls that he was more confused yesterday. Does have underlying dementia, but overall, this has resolved. 2) Will continue with IV Rocephin. Urine culture pending, however patient seems to be improving on Rocephin. WBC normal. CRP normal. Will slow IVF rate to 50 as patient is eating and drinking well. Continue IVF x 1 more day given how dehydrated patient was upon admission. We were able to get peripheral line placed after hydration. Will d/c central line due to infection risk. 3) BP continues to be elevated despite home meds. Will add Norvasc 5 mg. Patient unsure if he has been taking his home BP meds. 4) Continue QID AC and SSI. Metformin on hold. Blood sugars have been stable. Anticipate length of stay 2-3 days. Patient not ready for discharge as he continues receiving IV antibiotics. Plan of care was discussed with patient's daughter Magda who was agreeable with plan.
[2018-03-17] MEDS: amLODIPine 2.5 MG Tab PO SCH (09:18)
[2018-03-17] MEDS: Enoxaparin 40 MG/0.4 ML Syringe SUBCUT SCH (16:08)
[2018-03-17] MEDS: cefTRIAXone 1 GM Vial IVPUSH SCH (16:08)
[2018-03-17] MEDS: Sodium Chloride 0.9% 1,000 ML IV SCH (16:09)
[2018-03-17] MEDS ORDERED: Lisinopril 20 MG Tab PO SCH (17:45)
[2018-03-17] MEDS ORDERED: Hydrochlorothiazide 12.5 MG Cap PO SCH (17:45)
[2018-03-17] MEDS: Donepezil 5 MG Tab PO SCH (19:40)
[2018-03-18 07:30] LABS: CHLORIDE,CL 108 mEq/L (98-106); SODIUM,NA 143 mEq/L (136-145)
[2018-03-18] MEDS: Hydrochlorothiazide 12.5 MG Cap PO SCH (08:03)
[2018-03-18] MEDS: Insulin Aspart 100 Units/ML 3 ML Pen SUBCUT SCH ×2 (08:04→11:56)
[2018-03-18] MEDS: amLODIPine 2.5 MG Tab PO SCH (08:04)
[2018-03-18] MEDS: Lisinopril 20 MG Tab PO SCH (08:04)
[2018-03-18] MEDS: Sodium Chloride 0.9% 1,000 ML IV SCH (11:57)
[2018-03-18] MEDS: Enoxaparin 40 MG/0.4 ML Syringe SUBCUT SCH (15:55)
[2018-03-18] MEDS: cefTRIAXone 1 GM Vial IVPUSH SCH (15:57)
--- NOTE | 2018-03-18 17:22 | PCM.PN ---
- General Info Date of Service: 03/18/18 Admission Dx/Problem (Free Text): UTI/ confusion / fever Subjective Update: Jerzy is a 77 year old male who was admitted to the hospital yesterday with AMS and UTI. He reports he is feeling much better this morning. Reports he is less confused. He is oriented to person, place, and time. Yesterday he was disoriented except to person. He does not have any neurologic deficit. Nursing staff report he has been up to the bathroom frequently, but this also seems to be improving. He has been eating and drinking without difficulty. He does not recall much of yesteday, but does note he was very confused. His blood pressure has been running quite elevated. Patient does not have any c/o chest pain, shortness of breath, dizziness, vision changes. He also denies any flank pain. Does report that he does recall the past few weeks he has had some burning with urination, but does feel this has improved some today as well. No other complaints. He is resting comfortably in bed at time of rounds. Has been up ambulatory per self. Functional Status: Reports: Pain Controlled, Tolerating Diet, Ambulating, Urinating - Review of Systems General: Reports: No Symptoms HEENT: Reports: No Symptoms Pulmonary: Reports: Cough Cardiovascular: Reports: No Symptoms Gastrointestinal: Reports: No Symptoms Musculoskeletal: Reports: No Symptoms Skin: Reports: No Symptoms Neurological: Reports: No Symptoms Psychiatric: Reports: No Symptoms - Patient Data Vitals - Most Recent: Last Vital Signs Temp 98.7 F 03/18/18 15:52 Pulse 60 03/18/18 15:52 Resp 20 03/18/18 15:52 BP 180/71 H 03/18/18 15:52 Pulse Ox 99 03/18/18 15:52 Weight - Most Recent: 251 lb 4.8 oz I&O - Last 24 Hours: Intake & Output 03/18/18 03/18/18 03/18/18 06:59 14:59 22:59 Intake Total 990 Balance 990 Lab Results Last 24 Hours: Laboratory Results - last 24 hr 03/17/18 03/17/18 03/18/18 Range/Units 17:19 20:56 07:05 WBC (5.0-10.0) 10^3/uL RBC (4.50-6.00) 10^6/uL Hgb (14.0-18.0) g/dL Hct (40.0-54.0) % MCV (82.0-94.0) fL MCH (27.0-32.0) pg MCHC (33.0-38.0) g/dL RDW Coeff of Raz (11.0-15.0) % Plt Count (150-400) 10^3/uL Neut % (Auto) (35-85) % Lymph % (Auto) (10-55) % [place] % (Auto) (0-16) % Eos % (Auto) (0-5) % Baso % (Auto) (0-3) % Neut # (Auto) (1.80-7.00) 10^3/uL Lymph # (Auto) (1.00-4.80) 10^3/uL [place] # (Auto) (0.00-0.80) 10^3/uL Eos # (Auto) (0.00-0.45) 10^3/uL Baso # (Auto) 10^3/uL Sodium 143 (136-145) mEq/L Potassium 3.6 (3.5-5.0) mEq/L Chloride 108 H (98-106) mEq/L Carbon Dioxide 27 (21-32) mmol/L BUN 12 (7-18) mg/dL Creatinine 1.1 (0.7-1.3) mg/dL Est Cr Clr Drug Dosing 58.07 mL/min Estimated GFR (MDRD) > 60 (>=60) mL/min Glucose 164 H (75-99) mg/dL POC Glucose 167 H 200 H (75-105) mg/dl Calcium 8.5 (8.4-10.1) mg/dL C-Reactive Protein (0.2-0.8) mg/dL 03/18/18 03/18/18 03/18/18 Range/Units 07:05 07:05 07:55 WBC 5.8 (5.0-10.0) 10^3/uL RBC 4.41 L (4.50-6.00) 10^6/uL Hgb 13.9 L (14.0-18.0) g/dL Hct 41.3 (40.0-54.0) % MCV 93.7 (82.0-94.0) fL MCH 31.5 (27.0-32.0) pg MCHC 33.7 (33.0-38.0) g/dL RDW Coeff of Raz 12.8 (11.0-15.0) % Plt Count 153 (150-400) 10^3/uL Neut % (Auto) 59.6 (35-85) % Lymph % (Auto) 26.9 (10-55) % [place] % (Auto) 9.9 (0-16) % Eos % (Auto) 3.1 (0-5) % Baso % (Auto) 0.5 (0-3) % Neut # (Auto) 3.48 (1.80-7.00) 10^3/uL Lymph # (Auto) 1.57 (1.00-4.80) 10^3/uL [place] # (Auto) 0.58 (0.00-0.80) 10^3/uL Eos # (Auto) 0.18 (0.00-0.45) 10^3/uL Baso # (Auto) 0.03 10^3/uL Sodium (136-145) mEq/L Potassium (3.5-5.0) mEq/L Chloride (98-106) mEq/L Carbon Dioxide (21-32) mmol/L BUN (7-18) mg/dL Creatinine (0.7-1.3) mg/dL Est Cr Clr Drug Dosing mL/min Estimated GFR (MDRD) (>=60) mL/min Glucose (75-99) mg/dL POC Glucose 163 H (75-105) mg/dl Calcium (8.4-10.1) mg/dL C-Reactive Protein 0.5 (0.2-0.8) mg/dL [place] Results Last 24 Hours: Microbiology 03/16/18 16:05 Urine Culture - Final Urine, Voided Beta Hemolytic Strepto Grp B Med Orders - Current: Current Medications Amlodipine Besylate (Norvasc) 5 mg PO 2000 [facility] Ceftriaxone Sodium (Rocephin) 1 gm IVPUSH 1600 [facility] Last Admin: 03/18/18 15:57 Dose: 1 gm Donepezil HCl (Aricept) 15 mg PO BEDTIME [facility] Last Admin: 03/17/18 19:40 Dose: 15 mg Enoxaparin Sodium (Lovenox) 40 mg SUBCUT 1600 [facility] Last Admin: 03/18/18 15:55 Dose: 40 mg Hydrochlorothiazide (Hydrochlorothiazide) 12.5 mg PO DAILY [facility] Last Admin: 03/18/18 08:03 Dose: 12.5 mg Sodium Chloride (Normal Saline) 1,000 mls @ 50 mls/hr IV ASDIRECTED [facility] Last Admin: 03/18/18 11:57 Dose: 50 mls/hr Lisinopril (Prinivil) 20 mg PO DAILY [facility] Last Admin: 03/18/18 08:04 Dose: 20 mg Metformin HCl (Glucophage) 1,000 mg PO BIDMEALS [facility] Discontinued Medications Amlodipine Besylate (Norvasc) 5 mg PO DAILY [facility] Last Admin: 03/18/18 08:04 Dose: 5 mg Heparin Sodium (Porcine) (Heparin Lock Flush 100 Units/Ml) Confirm Administered Dose 1,000 units .ROUTE .SOLO-MED ONE Stop: 03/16/18 13:48 Last Admin: 03/16/18 15:55 Dose: Not Given Heparin Sodium (Porcine) (Heparin Lock Flush 100 Units/Ml) Confirm Administered Dose 500 units .ROUTE .SOLO-MD [place] ONE Stop: 03/16/18 13:52 Last Admin: 03/16/18 15:55 Dose: Not Given Heparin Sodium (Porcine) (Heparin Lock Flush 100 Units/Ml) 500 units FLUSH ASDIRECTED PRN PRN Reason: Other Last Admin: 03/16/18 14:50 Dose: 500 units Hydrochlorothiazide (Hydrochlorothiazide) 12.5 mg PO DAILY [facility] Sodium Chloride (Normal Saline) Confirm Administered Dose 1,000 mls @ as directed .ROUTE .SOLO-MD [place] ONE Stop: 03/16/18 14:45 Last Admin: 03/16/18 15:55 Dose: Not Given Sodium Chloride (Normal Saline) 1,000 mls @ 125 mls/hr IV ASDIRECTED [facility] Stop: 03/16/18 23:19 Last Admin: 03/16/18 15:20 Dose: 125 mls/hr Insulin Aspart (Novolog) 0 unit SUBCUT WITHMEALSANDBED [facility]; Protocol Last Admin: 03/18/18 11:56 Dose: 4 unit Insulin Aspart (Novolog) Confirm Administered Dose 4,000 unit .ROUTE .SOLO-MD [place] ONE Stop: 03/17/18 11:52 Last Admin: 03/17/18 11:52 Dose: Not Given Labetalol HCl (Normodyne) 20 mg IVPUSH ONETIME ONE; Protocol Stop: 03/16/18 12:51 Last Admin: 03/16/18 15:51 Dose: Not Given Lisinopril (Prinivil) 20 mg PO DAILY [facility] Metoprolol Tartrate (Lopressor) 5 mg IVPUSH ONETIME ONE Stop: 03/16/18 20:45 Last Admin: 03/16/18 21:34 Dose: 5 mg Neomycin/Polymyxin/Bacitracin (Triple Antibiotic Oint) Confirm Administered Dose 1 each .ROUTE .STK-MED ONE Stop: 03/16/18 14:11 Last Admin: 03/16/18 15:55 Dose: Not Given Neomycin/Polymyxin/Bacitracin (Triple Antibiotic Oint) 1 each TOP ONETIME ONE Stop: 03/16/18 15:55 Last Admin: 03/16/18 15:10 Dose: 1 each Non-Formulary Medication (Lisinopril/Hydrochlorothiazide [Zestoretic 20-12.5 Mg Tablet]) 1 each PO DAILY [facility] Last Admin: 03/16/18 18:29 Dose: Not Given - Exam General: Alert, Oriented, No Acute Distress HEENT: Pupils Equal, Pupils Reactive, EOMI, Mucous Membr. Moist/[place] Neck: Supple Lungs: Clear to Auscultation, Normal Respiratory Effort Cardiovascular: Regular Rate, Regular Rhythm GI/Abdominal Exam: Normal Bowel Sounds, Soft, Non-Tender Back Exam: Normal Inspection, Full Range of Motion Extremities: Normal Inspection, Normal Range of Motion, No Pedal Edema, Normal Capillary Refill. No: Joint Swelling, Tricia's Sign, Leg Pain Peripheral Pulses: 3+: Carotid (L), Carotid (R), Popliteal (L), Popliteal (R), Posterior Tibial (L), Posterior Tibial (R), Dorsalis Pedis (L), Dorsalis Pedis ( R) Skin: Warm, Dry, Intact Neurological: No New Focal Deficit Psy/Mental Status: Alert, Normal Affect, Normal Mood - Problem List Review Problem List Initiated/Reviewed/Updated: Yes - My Orders Last 24 Hours: My Active Orders 03/18/18 17:30 metFORMIN [Glucophage] 1,000 mg PO BIDMEALS 03/18/18 20:00 amLODIPine [Norvasc] 5 mg PO 2000 - Assessment Assessment:: 1) AMS 2) UTI 3) Hypertension 4) Type II DM - Plan Plan:: 1) AMS is improving. Patient is much more alert today. He is oriented to person , place, and time. He recalls that he was more confused yesterday. Does have underlying dementia, but overall, this has resolved. 2) Will continue with IV Rocephin. Urine culture pending, however patient seems to be improving on Rocephin. WBC normal. CRP normal. Will slow IVF rate to 50 as patient is eating and drinking well. Continue IVF x 1 more day given how dehydrated patient was upon admission. We were able to get peripheral line placed after hydration. Will d/c central line due to infection risk. 3) BP continues to be elevated despite home meds. Will add Norvasc 5 mg. Patient unsure if he has been taking his home BP meds. 4) Continue QID AC and SSI. Metformin on hold. Blood sugars have been stable. Anticipate length of stay 2-3 days. Patient not ready for discharge as he continues receiving IV antibiotics. Plan of care was discussed with patient's daughter Magda who was agreeable with plan. 03/18/2018 1720-Patient is alert oriented and doing well today. Eating 100% of his meals and improving well. it was noted that his BP meds are all in the am and Norvasc will be moved to 1999 to help control High BP better in the evenings. He will also be started back on Metformin and removed from sliding scale- and will continue to monitor glucose levels. Patient has refused all social service services but his daughter came in and wishes that he have the services I spoke with her and she is uncomfortable with him being d/c'd to home as he lives alone. She and her brother are willing to take him in or move him to [facility] where they are but he has not agreed to this yet. IV antibiotics will be continued and social sciences chair consultation on tuesday.
[2018-03-18] MEDS: metFORMIN 500 MG Tab PO SCH (17:31)
[2018-03-18] MEDS ORDERED: Enoxaparin 30 MG/0.3 ML Syringe SUBCUT SCH (18:45)
[2018-03-18] MEDS: Donepezil 5 MG Tab PO SCH (19:41)
[2018-03-18] MEDS ORDERED: amLODIPine 2.5 MG Tab PO SCH (20:00)
[2018-03-19 07:25] LABS: CHLORIDE,CL 105 mEq/L (98-106); SODIUM,NA 143 mEq/L (136-145)
[2018-03-19] MEDS: Hydrochlorothiazide 12.5 MG Cap PO SCH (07:42)
[2018-03-19] MEDS: metFORMIN 500 MG Tab PO SCH ×2 (07:42→17:22)
[2018-03-19] MEDS: Lisinopril 20 MG Tab PO SCH (07:42)
[2018-03-19] MEDS: Sodium Chloride 0.9% 1,000 ML IV SCH (07:43)
--- NOTE | 2018-03-19 14:46 | PCM.PN ---
- General Info Date of Service: 03/19/18 Admission Dx/Problem (Free Text): UTI/ confusion / fever Subjective Update: Jerzy is a 77 year old male who was admitted to the hospital yesterday with AMS and UTI. He reports he is feeling much better this morning. Reports he is less confused. He is oriented to person, place, and time. Yesterday he was disoriented except to person. He does not have any neurologic deficit. Nursing staff report he has been up to the bathroom frequently, but this also seems to be improving. He has been eating and drinking without difficulty. He does not recall much of yesteday, but does note he was very confused. His blood pressure has been running quite elevated. Patient does not have any c/o chest pain, shortness of breath, dizziness, vision changes. He also denies any flank pain. Does report that he does recall the past few weeks he has had some burning with urination, but does feel this has improved some today as well. No other complaints. He is resting comfortably in bed at time of rounds. Has been up ambulatory per self. Functional Status: Reports: Other (no pain) - Review of Systems General: Reports: No Symptoms HEENT: Reports: No Symptoms Pulmonary: Reports: No Symptoms Cardiovascular: Reports: No Symptoms Gastrointestinal: Reports: No Symptoms Genitourinary: Reports: No Symptoms Musculoskeletal: Reports: No Symptoms Skin: Reports: No Symptoms Neurological: Reports: No Symptoms Psychiatric: Reports: No Symptoms - Patient Data Vitals - Most Recent: Last Vital Signs Temp 97.1 F 03/19/18 11:45 Pulse 53 L 03/19/18 11:45 Resp 14 03/19/18 11:45 BP 228/73 H 03/19/18 11:45 Pulse Ox 99 03/19/18 11:45 Weight - Most Recent: 251 lb 4.8 oz I&O - Last 24 Hours: Intake & Output 03/18/18 03/19/18 03/19/18 22:59 06:59 14:59 Intake Total 988 Balance 988 Lab Results Last 24 Hours: Laboratory Results - last 24 hr 03/18/18 03/18/18 03/18/18 Range/Units 11:26 17:27 20:33 WBC (5.0-10.0) 10^3/uL RBC (4.50-6.00) 10^6/uL Hgb (14.0-18.0) g/dL Hct (40.0-54.0) % MCV (82.0-94.0) fL MCH (27.0-32.0) pg MCHC (33.0-38.0) g/dL RDW Coeff of Raz (11.0-15.0) % Plt Count (150-400) 10^3/uL Neut % (Auto) (35-85) % Lymph % (Auto) (10-55) % [place] % (Auto) (0-16) % Eos % (Auto) (0-5) % Baso % (Auto) (0-3) % Neut # (Auto) (1.80-7.00) 10^3/uL Lymph # (Auto) (1.00-4.80) 10^3/uL [place] # (Auto) (0.00-0.80) 10^3/uL Eos # (Auto) (0.00-0.45) 10^3/uL Baso # (Auto) 10^3/uL Sodium (136-145) mEq/L Potassium (3.5-5.0) mEq/L Chloride (98-106) mEq/L Carbon Dioxide (21-32) mmol/L BUN (7-18) mg/dL Creatinine (0.7-1.3) mg/dL Est Cr Clr Drug Dosing mL/min Estimated GFR (MDRD) (>=60) mL/min Glucose (75-99) mg/dL POC Glucose 247 H 184 H 186 H (75-105) mg/dl Calcium (8.4-10.1) mg/dL C-Reactive Protein (0.2-0.8) mg/dL 03/19/18 03/19/18 03/19/18 Range/Units 05:36 05:45 07:10 WBC 6.7 (5.0-10.0) 10^3/uL RBC 4.49 L (4.50-6.00) 10^6/uL Hgb 14.2 (14.0-18.0) g/dL Hct 41.6 (40.0-54.0) % MCV 92.7 (82.0-94.0) fL MCH 31.6 (27.0-32.0) pg MCHC 34.1 (33.0-38.0) g/dL RDW Coeff of Raz 12.6 (11.0-15.0) % Plt Count 160 (150-400) 10^3/uL Neut % (Auto) 62.6 (35-85) % Lymph % (Auto) 23.3 (10-55) % [place] % (Auto) 10.0 (0-16) % Eos % (Auto) 3.7 (0-5) % Baso % (Auto) 0.4 (0-3) % Neut # (Auto) 4.21 (1.80-7.00) 10^3/uL Lymph # (Auto) 1.57 (1.00-4.80) 10^3/uL [place] # (Auto) 0.67 (0.00-0.80) 10^3/uL Eos # (Auto) 0.25 (0.00-0.45) 10^3/uL Baso # (Auto) 0.03 10^3/uL Sodium 143 (136-145) mEq/L Potassium 3.5 (3.5-5.0) mEq/L Chloride 105 (98-106) mEq/L Carbon Dioxide 28 (21-32) mmol/L BUN 12 (7-18) mg/dL Creatinine 1.1 (0.7-1.3) mg/dL Est Cr Clr Drug Dosing 58.07 mL/min Estimated GFR (MDRD) > 60 (>=60) mL/min Glucose 171 H (75-99) mg/dL POC Glucose (75-105) mg/dl Calcium 8.2 L (8.4-10.1) mg/dL C-Reactive Protein 0.2 (0.2-0.8) mg/dL 03/19/18 Range/Units 07:43 WBC (5.0-10.0) 10^3/uL RBC (4.50-6.00) 10^6/uL Hgb (14.0-18.0) g/dL Hct (40.0-54.0) % MCV (82.0-94.0) fL MCH (27.0-32.0) pg MCHC (33.0-38.0) g/dL RDW Coeff of Raz (11.0-15.0) % Plt Count (150-400) 10^3/uL Neut % (Auto) (35-85) % Lymph % (Auto) (10-55) % [place] % (Auto) (0-16) % Eos % (Auto) (0-5) % Baso % (Auto) (0-3) % Neut # (Auto) (1.80-7.00) 10^3/uL Lymph # (Auto) (1.00-4.80) 10^3/uL [place] # (Auto) (0.00-0.80) 10^3/uL Eos # (Auto) (0.00-0.45) 10^3/uL Baso # (Auto) 10^3/uL Sodium (136-145) mEq/L Potassium (3.5-5.0) mEq/L Chloride (98-106) mEq/L Carbon Dioxide (21-32) mmol/L BUN (7-18) mg/dL Creatinine (0.7-1.3) mg/dL Est Cr Clr Drug Dosing mL/min Estimated GFR (MDRD) (>=60) mL/min Glucose (75-99) mg/dL POC Glucose 162 H (75-105) mg/dl Calcium (8.4-10.1) mg/dL C-Reactive Protein (0.2-0.8) mg/dL Med Orders - Current: Current Medications Amlodipine Besylate (Norvasc) 10 mg PO 2000 [facility] Ceftriaxone Sodium (Rocephin) 1 gm IVPUSH 1600 [facility] Last Admin: 03/18/18 15:57 Dose: 1 gm Donepezil HCl (Aricept) 15 mg PO BEDTIME [facility] Last Admin: 03/18/18 19:41 Dose: 15 mg Enoxaparin Sodium (Lovenox) 40 mg SUBCUT Q24H [facility] Hydrochlorothiazide (Hydrochlorothiazide) 12.5 mg PO DAILY [facility] Last Admin: 03/19/18 07:42 Dose: 12.5 mg Sodium Chloride (Normal Saline) 1,000 mls @ 50 mls/hr IV ASDIRECTED [facility] Last Admin: 03/19/18 07:43 Dose: 50 mls/hr Lisinopril (Prinivil) 20 mg PO DAILY [facility] Last Admin: 03/19/18 07:42 Dose: 20 mg Metformin HCl (Glucophage) 1,000 mg PO BIDMEALS [facility] Last Admin: 03/19/18 07:42 Dose: 1,000 mg Discontinued Medications Amlodipine Besylate (Norvasc) 5 mg PO DAILY [facility] Last Admin: 03/18/18 08:04 Dose: 5 mg Amlodipine Besylate (Norvasc) 5 mg PO 2000 [facility] Last Admin: 03/18/18 19:42 Dose: 5 mg Enoxaparin Sodium (Lovenox) 40 mg SUBCUT 1600 [facility] Last Admin: 03/18/18 15:55 Dose: 40 mg Heparin Sodium (Porcine) (Heparin Lock Flush 100 Units/Ml) Confirm Administered Dose 1,000 units .ROUTE .STK-MED ONE Stop: 03/16/18 13:48 Last Admin: 03/16/18 15:55 Dose: Not Given Heparin Sodium (Porcine) (Heparin Lock Flush 100 Units/Ml) Confirm Administered Dose 500 units .ROUTE .STK-MED ONE Stop: 03/16/18 13:52 Last Admin: 03/16/18 15:55 Dose: Not Given Heparin Sodium (Porcine) (Heparin Lock Flush 100 Units/Ml) 500 units FLUSH ASDIRECTED PRN PRN Reason: Other Last Admin: 03/16/18 14:50 Dose: 500 units Hydrochlorothiazide (Hydrochlorothiazide) 12.5 mg PO DAILY [facility] Sodium Chloride (Normal Saline) Confirm Administered Dose 1,000 mls @ as directed .ROUTE .STK-MED ONE Stop: 03/16/18 14:45 Last Admin: 03/16/18 15:55 Dose: Not Given Sodium Chloride (Normal Saline) 1,000 mls @ 125 mls/hr IV ASDIRECTED [facility] Stop: 03/16/18 23:19 Last Admin: 03/16/18 15:20 Dose: 125 mls/hr Insulin Aspart (Novolog) 0 unit SUBCUT WITHMEALSANDBED [facility]; Protocol Last Admin: 03/18/18 11:56 Dose: 4 unit Insulin Aspart (Novolog) Confirm Administered Dose 4,000 unit .ROUTE .STK-MED ONE Stop: 03/17/18 11:52 Last Admin: 03/17/18 11:52 Dose: Not Given Labetalol HCl (Normodyne) 20 mg IVPUSH ONETIME ONE; Protocol Stop: 03/16/18 12:51 Last Admin: 03/16/18 15:51 Dose: Not Given Lisinopril (Prinivil) 20 mg PO DAILY [facility] Metoprolol Tartrate (Lopressor) 5 mg IVPUSH ONETIME ONE Stop: 03/16/18 20:45 Last Admin: 03/16/18 21:34 Dose: 5 mg Neomycin/Polymyxin/Bacitracin (Triple Antibiotic Oint) Confirm Administered Dose 1 each .ROUTE .STK-MED ONE Stop: 03/16/18 14:11 Last Admin: 03/16/18 15:55 Dose: Not Given Neomycin/Polymyxin/Bacitracin (Triple Antibiotic Oint) 1 each TOP ONETIME ONE Stop: 03/16/18 15:55 Last Admin: 03/16/18 15:10 Dose: 1 each Non-Formulary Medication (Lisinopril/Hydrochlorothiazide [Zestoretic 20-12.5 Mg Tablet]) 1 each PO DAILY [facility] Last Admin: 03/16/18 18:29 Dose: Not Given - Exam General: Alert, Oriented, Cooperative HEENT: Pupils Equal, Pupils Reactive, EOMI, Mucous Membr. Moist/[place] Neck: Supple Lungs: Clear to Auscultation, Normal Respiratory Effort Cardiovascular: Regular Rate, Regular Rhythm GI/Abdominal Exam: Normal Bowel Sounds, Soft, Non-Tender, No Distention Back Exam: Normal Inspection Extremities: Normal Inspection, Normal Range of Motion, No Pedal Edema, Normal Capillary Refill Skin: Warm, Dry, Intact Neurological: No New Focal Deficit, Normal Gait Psy/Mental Status: Alert, Normal Affect, Normal Mood - Problem List Review Problem List Initiated/Reviewed/Updated: Yes - My Orders Last 24 Hours: My Active Orders 03/18/18 17:30 metFORMIN [Glucophage] 1,000 mg PO BIDMEALS 03/19/18 14:35 URINALYSIS W/MICROSCOPIC [UA W/MICROSCOPIC] [URIN] Routine 03/19/18 16:00 Enoxaparin [Lovenox] 40 mg SUBCUT Q24H 03/19/18 20:00 amLODIPine [Norvasc] 10 mg PO 1999 - Assessment Assessment:: 1) AMS 2) UTI 3) Hypertension 4) Type II DM - Plan Plan:: 1) AMS is improving. Patient is much more alert today. He is oriented to person , place, and time. He recalls that he was more confused yesterday. Does have underlying dementia, but overall, this has resolved. 2) Will continue with IV Rocephin. Urine culture pending, however patient seems to be improving on Rocephin. WBC normal. CRP normal. Will slow IVF rate to 50 as patient is eating and drinking well. Continue IVF x 1 more day given how dehydrated patient was upon admission. We were able to get peripheral line placed after hydration. Will d/c central line due to infection risk. 3) BP continues to be elevated despite home meds. Will add Norvasc 5 mg. Patient unsure if he has been taking his home BP meds. 4) Continue QID AC and SSI. Metformin on hold. Blood sugars have been stable. Anticipate length of stay 2-3 days. Patient not ready for discharge as he continues receiving IV antibiotics. Plan of care was discussed with patient's daughter aMgda who was agreeable with plan. 03/18/2018 1720-Patient is alert oriented and doing well today. Eating 100% of his meals and improving well. it was noted that his BP meds are all in the am and Norvasc will be moved to 2000 to help control High BP better in the evenings. He will also be started back on Metformin and removed from sliding scale- and will continue to monitor glucose levels. Patient has refused all social service services but his daughter came in and wishes that he have the services I spoke with her and she is uncomfortable with him being d/c'd to home as he lives alone. She and her brother are willing to take him in or move him to [facility] where they are but he has not agreed to this yet. IV antibiotics will be continued and older adult social work specialist consultation on tuesday. 03/19/2018 Patient is alert smiling and conversing well- He will have his IV fluids d/c'd and will continue to monitor output-- Urine will be rechecked today to see if UTI is cleared. He is open to older adult social work specialist-seeing if he can get [employer] wheels or a life alert his daughter and son both would like the patient to have services or move to [place] with them which he refused to do. Should be able to d/c tomorrow.
[2018-03-19] MEDS: Enoxaparin 40 MG/0.4 ML Syringe SUBCUT SCH (15:46)
[2018-03-19] MEDS: cefTRIAXone 1 GM Vial IVPUSH SCH (15:46)
[2018-03-19] MEDS: Donepezil 5 MG Tab PO SCH (19:50)
[2018-03-19] MEDS: amLODIPine 10 MG Tab PO SCH (19:51)
[2018-03-20] MEDS: Hydrochlorothiazide 12.5 MG Cap PO SCH (07:54)
[2018-03-20] MEDS: metFORMIN 500 MG Tab PO SCH (07:54)
[2018-03-20] MEDS: Lisinopril 20 MG Tab PO SCH (07:55)
[2018-03-20] MEDS ORDERED: Hydrochlorothiazide 12.5 MG Cap PO ONE (09:19)
[2018-03-20] MEDS: Isosorbide Mononitrate 30 MG Tab.ER PO SCH (09:29)
[2018-03-20] MEDS ORDERED: Iopamidol 755 Mg/ML 100 ML Bottle IVPUSH ONE (09:52)
--- NOTE | 2018-03-20 14:26 | PCM.PN ---
- General Info Date of Service: 03/20/18 Admission Dx/Problem (Free Text): UTI/ confusion / fever Functional Status: Reports: Pain Controlled, Tolerating Diet, Ambulating - Review of Systems General: Reports: Weakness (admits to feeling weak but is much improved from admit date) HEENT: Reports: No Symptoms Pulmonary: Denies: Shortness of Breath, Cough Cardiovascular: Denies: Chest Pain, Lightheadedness Gastrointestinal: Denies: Abdominal Pain, Nausea, Vomiting Genitourinary: Reports: No Symptoms Musculoskeletal: Reports: No Symptoms Skin: Reports: No Symptoms Neurological: Reports: Weakness - Patient Data Vitals - Most Recent: Last Vital Signs Temp 97.3 F 03/20/18 12:00 Pulse 65 03/20/18 12:00 Resp 18 03/20/18 12:00 BP 144/62 H 03/20/18 12:00 Pulse Ox 98 03/20/18 12:00 Weight - Most Recent: 251 lb 4.8 oz Lab Results Last 24 Hours: Laboratory Results - last 24 hr 03/19/18 03/19/18 03/19/18 Range/Units 11:35 15:56 17:18 POC Glucose 165 H 165 H (75-105) mg/dl Urine Color Yellow (YELLOW) Urine Appearance Slightly cloudy (CLEAR) Urine pH 5.5 (4.5-8.0) Ur Specific [place] 1.025 H (1.003-1.020) Urine Protein 100 H (NEGATIVE) mg/dL Urine Glucose (UA) 250 H (NEGATIVE) mg/dL Urine Ketones Negative (NEGATIVE) mg/dL Urine Occult Blood Moderate H (NEGATIVE) Urine Nitrite Negative (NEGATIVE) Urine Bilirubin Negative (NEGATIVE) Urine Urobilinogen 0.2 (0.2-1.0) EU/dL Ur Leukocyte Esterase Negative (NEGATIVE) Urine RBC 40-50 H (0-5) /HPF Urine WBC 40-50 H (0-5) /HPF Urine WBC Clumps Occasional H (NOT SEEN) /HPF Ur Squamous Epith Cells Occasional H (NOT SEEN) /HPF Urine Bacteria Occasional H (NOT SEEN) /HPF 03/19/18 03/20/18 Range/Units 21:13 07:48 POC Glucose 151 H 159 H (75-105) mg/dl Urine Color (YELLOW) Urine Appearance (CLEAR) Urine pH (4.5-8.0) Ur Specific [place] (1.003-1.020) Urine Protein (NEGATIVE) mg/dL Urine Glucose (UA) (NEGATIVE) mg/dL Urine Ketones (NEGATIVE) mg/dL Urine Occult Blood (NEGATIVE) Urine Nitrite (NEGATIVE) Urine Bilirubin (NEGATIVE) Urine Urobilinogen (0.2-1.0) EU/dL Ur Leukocyte Esterase (NEGATIVE) Urine RBC (0-5) /HPF Urine WBC (0-5) /HPF Urine WBC Clumps (NOT SEEN) /HPF Ur Squamous Epith Cells (NOT SEEN) /HPF Urine Bacteria (NOT SEEN) /HPF Med Orders - Current: Current Medications Amlodipine Besylate (Norvasc) 10 mg PO 1999 [facility] Last Admin: 03/19/18 19:51 Dose: 10 mg Ceftriaxone Sodium (Rocephin) 1 gm IVPUSH 1600 [facility] Last Admin: 03/19/18 15:46 Dose: 1 gm Donepezil HCl (Aricept) 15 mg PO BEDTIME [facility] Last Admin: 03/19/18 19:50 Dose: 15 mg Enoxaparin Sodium (Lovenox) 40 mg SUBCUT Q24H [facility] Last Admin: 03/19/18 15:46 Dose: 40 mg Hydrochlorothiazide (Hydrochlorothiazide) 25 mg PO DAILY [facility] Isosorbide Mononitrate (Imdur) 30 mg PO DAILY [facility] Last Admin: 03/20/18 09:29 Dose: 30 mg Lisinopril (Prinivil) 20 mg PO DAILY [facility] Last Admin: 03/20/18 07:55 Dose: 20 mg Metformin HCl (Glucophage) 1,000 mg PO BIDMEALS [facility] Last Admin: 03/20/18 07:54 Dose: 1,000 mg Discontinued Medications Amlodipine Besylate (Norvasc) 5 mg PO DAILY [facility] Last Admin: 03/18/18 08:04 Dose: 5 mg Amlodipine Besylate (Norvasc) 5 mg PO 1999 [facility] Last Admin: 03/18/18 19:42 Dose: 5 mg Enoxaparin Sodium (Lovenox) 40 mg SUBCUT 1600 [facility] Last Admin: 03/18/18 15:55 Dose: 40 mg Heparin Sodium (Porcine) (Heparin Lock Flush 100 Units/Ml) Confirm Administered Dose 1,000 units .ROUTE .STK-MED ONE Stop: 03/16/18 13:48 Last Admin: 03/16/18 15:55 Dose: Not Given Heparin Sodium (Porcine) (Heparin Lock Flush 100 Units/Ml) Confirm Administered Dose 500 units .ROUTE .STK-MED ONE Stop: 03/16/18 13:52 Last Admin: 03/16/18 15:55 Dose: Not Given Heparin Sodium (Porcine) (Heparin Lock Flush 100 Units/Ml) 500 units FLUSH ASDIRECTED PRN PRN Reason: Other Last Admin: 03/16/18 14:50 Dose: 500 units Hydrochlorothiazide (Hydrochlorothiazide) 12.5 mg PO DAILY [facility] Hydrochlorothiazide (Hydrochlorothiazide) 12.5 mg PO DAILY [facility] Last Admin: 03/20/18 07:54 Dose: 12.5 mg Hydrochlorothiazide (Hydrochlorothiazide) 12.5 mg PO NOW ONE Stop: 03/20/18 09:20 Last Admin: 03/20/18 09:29 Dose: 12.5 mg Sodium Chloride (Normal Saline) Confirm Administered Dose 1,000 mls @ as directed .ROUTE .STK-MED ONE Stop: 03/16/18 14:45 Last Admin: 03/16/18 15:55 Dose: Not Given Sodium Chloride (Normal Saline) 1,000 mls @ 125 mls/hr IV ASDIRECTED [facility] Stop: 03/16/18 23:19 Last Admin: 03/16/18 15:20 Dose: 125 mls/hr Sodium Chloride (Normal Saline) 1,000 mls @ 50 mls/hr IV ASDIRECTED [facility] Last Admin: 03/19/18 07:43 Dose: 50 mls/hr Insulin Aspart (Novolog) 0 unit SUBCUT WITHMEALSANDBED [facility]; Protocol Last Admin: 03/18/18 11:56 Dose: 4 unit Insulin Aspart (Novolog) Confirm Administered Dose 4,000 unit .ROUTE .STK-MED ONE Stop: 03/17/18 11:52 Last Admin: 03/17/18 11:52 Dose: Not Given Iopamidol (Isovue-370 (76%)) 100 ml IVPUSH ONETIME ONE Stop: 03/20/18 09:53 Last Admin: 03/20/18 11:00 Dose: 100 ml Labetalol HCl (Normodyne) 20 mg IVPUSH ONETIME ONE; Protocol Stop: 03/16/18 12:51 Last Admin: 03/16/18 15:51 Dose: Not Given Lisinopril (Prinivil) 20 mg PO DAILY [facility] Metoprolol Tartrate (Lopressor) 5 mg IVPUSH ONETIME ONE Stop: 03/16/18 20:45 Last Admin: 03/16/18 21:34 Dose: 5 mg Neomycin/Polymyxin/Bacitracin (Triple Antibiotic Oint) Confirm Administered Dose 1 each .ROUTE .STK-MED ONE Stop: 03/16/18 14:11 Last Admin: 03/16/18 15:55 Dose: Not Given Neomycin/Polymyxin/Bacitracin (Triple Antibiotic Oint) 1 each TOP ONETIME ONE Stop: 03/16/18 15:55 Last Admin: 03/16/18 15:10 Dose: 1 each Non-Formulary Medication (Lisinopril/Hydrochlorothiazide [Zestoretic 20-12.5 Mg Tablet]) 1 each PO DAILY [facility] Last Admin: 03/16/18 18:29 Dose: Not Given - Exam General: Alert, Oriented, Cooperative HEENT: Mucous Membr. Moist/[place] Neck: Supple Lungs: Clear to Auscultation, Normal Respiratory Effort Cardiovascular: Regular Rate, Regular Rhythm GI/Abdominal Exam: Normal Bowel Sounds, Soft, Non-Tender Extremities: Normal Inspection, Pedal Edema (trace of edema) Skin: Warm, Dry Neurological: No New Focal Deficit, Other (neuro exam within normal limits. Does use a walker to ambulate, no pronator drift. Hand strength is equal. Answers questions appropriately. Does laugh/make jokes when questioned about ability to care for self at home. ) - Problem List & Annotations (1) Hypertension SNOMED Code(s): 21027678 Code(s): I10 - ESSENTIAL (PRIMARY) HYPERTENSION Status: Acute Priority: High Current Visit: Yes Qualifiers: Hypertension type: unspecified Qualified Code(s): I10 - Essential (primary ) hypertension (2) Altered mental status SNOMED Code(s): 329852136 Code(s): R41.82 - ALTERED MENTAL STATUS, UNSPECIFIED Status: Acute Priority: High Current Visit: Yes Qualifiers: Altered mental status type: transient alteration of awareness Qualified Code(s): R40.4 - Transient alteration of awareness - Problem List Review Problem List Initiated/Reviewed/Updated: Yes - My Orders Last 24 Hours: My Active Orders 03/20/18 09:30 Isosorbide Mononitrate [Imdur] 30 mg PO DAILY 03/21/18 08:00 hydroCHLOROthiazide 25 mg PO DAILY - Assessment Assessment:: 1) AMS 2) UTI 3) Hypertension 4) Type II DM - Plan Plan:: 1) AMS is improving. Patient is much more alert today. He is oriented to person , place, and time. He recalls that he was more confused yesterday. Does have underlying dementia, but overall, this has resolved. 2) Will continue with IV Rocephin. Urine culture pending, however patient seems to be improving on Rocephin. WBC normal. CRP normal. Will slow IVF rate to 50 as patient is eating and drinking well. Continue IVF x 1 more day given how dehydrated patient was upon admission. We were able to get peripheral line placed after hydration. Will d/c central line due to infection risk. 3) BP continues to be elevated despite home meds. Will add Norvasc 5 mg. Patient unsure if he has been taking his home BP meds. 4) Continue QID AC and SSI. Metformin on hold. Blood sugars have been stable. Anticipate length of stay 2-3 days. Patient not ready for discharge as he continues receiving IV antibiotics. Plan of care was discussed with patient's daughter Magda who was agreeable with plan. 03/18/2018 1720-Patient is alert oriented and doing well today. Eating 100% of his meals and improving well. it was noted that his BP meds are all in the am and Norvasc will be moved to 2000 to help control High BP better in the evenings. He will also be started back on Metformin and removed from sliding scale- and will continue to monitor glucose levels. Patient has refused all social service services but his daughter came in and wishes that he have the services I spoke with her and she is uncomfortable with him being d/c'd to home as he lives alone. She and her brother are willing to take him in or move him to [facility] where they are but he has not agreed to this yet. IV antibiotics will be continued and social worker delinquency prevention consultation on tuesday. 03/19/2018 Patient is alert smiling and conversing well- He will have his IV fluids d/c'd and will continue to monitor output-- Urine will be rechecked today to see if UTI is cleared. He is open to social worker delinquency prevention-seeing if he can get Meals on wheels or a life alert his daughter and son both would like the patient to have services or move to [place] with them which he refused to do. Should be able to d/c tomorrow. 03-20-2018 Patient is doing well. UP in chair, appetite is good. He is ambulating with walker and standby assist. No weakness noted in legs. Equal palmar grasps. Answers questions appropriately. Addressed need for services in his home, ie. meals on wheels, life alert. He declines, states he has a friend Monica that helps him out with everything. No yet willing to leave his home to be with his kids. Blood pressure does continue to run high, 197/73 this am. Medication adjustments were made over the weekend but remains high, which has been an ongoing concern since admission. Will proceed with duplex renal ultrasound. Will increase his HCTZ to 25 mg daily and add ImDur as he heart rate continues in the 50s. Continue to monitor blood pressure for control, possible discharge home tomorrow. ambulatory services representative to again discuss home safety.
[2018-03-20] MEDS: Enoxaparin 40 MG/0.4 ML Syringe SUBCUT SCH (16:51)
[2018-03-20] MEDS: cefTRIAXone 1 GM Vial IVPUSH SCH (16:53)
[2018-03-20] MEDS: Donepezil 5 MG Tab PO SCH (19:43)
[2018-03-20] MEDS: amLODIPine 10 MG Tab PO SCH (19:44)
[2018-03-21] MEDS ORDERED: Hydrochlorothiazide 12.5 MG Cap PO SCH (08:00)
[2018-03-21] MEDS: Lisinopril 20 MG Tab PO SCH (08:21)
[2018-03-21] MEDS: Isosorbide Mononitrate 30 MG Tab.ER PO SCH (08:24)
[2018-03-21 08:25] VITALS: BP 158/63
--- NOTE | 2018-03-21 22:14 | PCM.DCSUM1 ---
Discharge Summary - Hospital Course Free Text/Narrative:: Patient is a 77 year old who presented to ER per EMS with altered mental status. Did not follow his usual routine by showing up for breakfast at his neighbors so were concerned and went to check on him. Patient was found to be qutie confused. Had tried to start his care with his wallet and cellphone instead of his keys. Does have a history of dementia but more confused than his baseline. Speech had seemed slurred. Daughter had reported that he seemed to have a worsening of his confusion over the prior month. She has been concerned of incontinence at times and poor hygiene. Has suggested he move closer to his children but has declined up to this point. Neuro exam was difficult to assess per provider as he did not follow commands, was not appropriate in his response. Diagnosis: Stroke: No Modified Clifford Scale: No Symptoms at All Modified Clifford Scale Score: 0 - Discharge Data Discharge Date: 03/21/18 Discharge Disposition: Home, Self-Care 01 Condition: Fair - Discharge Diagnosis/Problem(s) (1) Hypertension SNOMED Code(s): 43594055 ICD Code: I10 - ESSENTIAL (PRIMARY) HYPERTENSION Status: Acute Priority: High Qualifiers: Hypertension type: unspecified Qualified Code(s): I10 - Essential (primary ) hypertension (2) Altered mental status SNOMED Code(s): 805781700 ICD Code: R41.82 - ALTERED MENTAL STATUS, UNSPECIFIED Status: Acute Priority: High Qualifiers: Altered mental status type: transient alteration of awareness Qualified Code(s): R40.4 - Transient alteration of awareness - Patient Summary/Data Complications: none Hospital Course: Patient has improved in overall status since admission. Is answering questions more appropriately but still confused on short term memory concerns. He is unable to relate who he sees for a provider, knows he does fill his meds in [place] but only able to relate that he is taking metformin. Is not able to recall if taking his blood pressure meds. He is ambulating well with walker in room and in halls. Blood pressure has ran quite high during stay, adjustments to his meds have been made. Was started initially on Amlodipine 5 mg and eventually increased to 10 mg. Increased the HCTZ to 25 mg and added ImDur. Did consider beta thierno but due to heart rate in the 50s-60s did not feel patient would tolerate. Blood sugars have beenvarying between 150-250. Labs on admit were positive for a UTI, culture grew out beta hemolytic strep. Has been covered with Rocephin during stay. Home health services were suggested but patient declined. States "his friend Leonela" helps him. Did suggest life alert and meals on wheels but declined. Will be discharged home on new blood pressure medications and ceftin for UTI coverage. - Patient Instructions Diet: Diabetic Diet Activity: As Tolerated - Discharge Plan *PRESCRIPTION DRUG MONITORING PROGRAM REVIEWED*: Not Applicable *COPY OF PRESCRIPTION DRUG MONITORING REPORT IN PATIENT FELICITA: Not Applicable Prescriptions/Med Rec: Cefuroxime Axetil [Ceftin] 500 mg PO BID #14 tablet Isosorbide Mononitrate [Imdur] 30 mg PO DAILY #30 tab.er Lisinopril/Hydrochlorothiazide [Zestoretic 20-25 mg Tablet] 1 each PO DAILY #30 tablet Home Medications: Home Meds Aspirin/Calcium Carbonate/Mag [Aspirin Buffered 325 mg Tab] 325 mg PO DAILY [History] Ubidecarenone [Co Q-10 ER] 100 mg PO BID 10/24/13 [History] metFORMIN HCl [Metformin HCl] 1,000 mg PO BID 10/24/13 [History] Cholecalciferol (Vitamin D3) [Vitamin D3] 4,000 unit PO BID 03/16/18 [History] Donepezil HCl [Aricept] 15 mg PO BEDTIME 03/16/18 [History] Gluc 2KCl/Chondr/Jonathan Hy/Hy Ac [Glucosamine & Chondroitin Cap] 1 cap PO BID 08/25 [History] Lutein/Minerals/Vit A,C & E [I-Garrick] 1 tab PO BID 03/16/18 [History] Red Yeast Rice 1 cap PO DAILY 03/16/18 [History] Cefuroxime Axetil [Ceftin] 500 mg PO BID #14 tablet 03/21/18 [Rx] Isosorbide Mononitrate [Imdur] 30 mg PO DAILY #30 tab.er 03/21/18 [Rx] Lisinopril/Hydrochlorothiazide [Zestoretic 20-25 mg Tablet] 1 each PO DAILY #30 tablet 03/21/18 [Rx] Patient Handouts: Urinary Tract Infection, Adult Forms: ED Department Discharge Referrals: Dimas Smalls MD [Ordering Only Provider] - (Follow up in [address] Smalls) - Discharge Summary/Plan Comment DC Time >30 min.: No - General Info Date of Service: 03/21/18 Admission Dx/Problem (Free Text: UTI/ confusion / fever Functional Status: Reports: Pain Controlled, Tolerating Diet, Ambulating - Review of Systems General: Denies: Fever, Weakness, Fatigue HEENT: Reports: No Symptoms Pulmonary: Denies: Shortness of Breath, Cough Cardiovascular: Denies: Chest Pain, Edema, Lightheadedness Gastrointestinal: Denies: Abdominal Pain, Nausea, Vomiting Genitourinary: Reports: No Symptoms Musculoskeletal: Reports: No Symptoms Skin: Reports: No Symptoms Neurological: Reports: Confusion - Patient Data Vitals - Most Recent: Last Vital Signs Temp 98.6 F 03/21/18 08:00 Pulse 57 L 03/21/18 08:00 Resp 18 03/21/18 08:00 BP 158/63 H 03/21/18 08:24 Pulse Ox 98 03/21/18 08:00 Weight - Most Recent: 251 lb 4.8 oz Lab Results - Last 24 hrs: Laboratory Results - last 24 hr 03/16/18 03/21/18 Range/Units 13:57 08:20 POC Glucose 146 H (75-105) mg/dl Miscellaneous Test Comment Med Orders - Current: Current Medications Discontinued Medications Amlodipine Besylate (Norvasc) 5 mg PO DAILY [facility] Last Admin: 03/18/18 08:04 Dose: 5 mg Amlodipine Besylate (Norvasc) 5 mg PO 1999 [facility] Last Admin: 03/18/18 19:42 Dose: 5 mg Amlodipine Besylate (Norvasc) 10 mg PO 1999 [facility] Last Admin: 03/20/18 19:44 Dose: 10 mg Ceftriaxone Sodium (Rocephin) 1 gm IVPUSH 1600 [facility] Last Admin: 03/20/18 16:53 Dose: 1 gm Donepezil HCl (Aricept) 15 mg PO BEDTIME [facility] Last Admin: 03/20/18 19:43 Dose: 15 mg Enoxaparin Sodium (Lovenox) 40 mg SUBCUT 1600 [facility] Last Admin: 03/18/18 15:55 Dose: 40 mg Enoxaparin Sodium (Lovenox) 40 mg SUBCUT Q24H [facility] Last Admin: 03/20/18 16:51 Dose: 40 mg Heparin Sodium (Porcine) (Heparin Lock Flush 100 Units/Ml) Confirm Administered Dose 1,000 units .ROUTE .[facility] ONE Stop: 03/16/18 13:48 Last Admin: 03/16/18 15:55 Dose: Not Given Heparin Sodium (Porcine) (Heparin Lock Flush 100 Units/Ml) Confirm Administered Dose 500 units .ROUTE .[facility] ONE Stop: 03/16/18 13:52 Last Admin: 03/16/18 15:55 Dose: Not Given Heparin Sodium (Porcine) (Heparin Lock Flush 100 Units/Ml) 500 units FLUSH ASDIRECTED PRN PRN Reason: Other Last Admin: 03/16/18 14:50 Dose: 500 units Hydrochlorothiazide (Hydrochlorothiazide) 12.5 mg PO DAILY [facility] Hydrochlorothiazide (Hydrochlorothiazide) 12.5 mg PO DAILY [facility] Last Admin: 03/20/18 07:54 Dose: 12.5 mg Hydrochlorothiazide (Hydrochlorothiazide) 12.5 mg PO NOW ONE Stop: 03/20/18 09:20 Last Admin: 03/20/18 09:29 Dose: 12.5 mg Hydrochlorothiazide (Hydrochlorothiazide) 25 mg PO DAILY [facility] Last Admin: 03/21/18 08:24 Dose: 25 mg Sodium Chloride (Normal Saline) Confirm Administered Dose 1,000 mls @ as directed .ROUTE .[facility] ONE Stop: 03/16/18 14:45 Last Admin: 03/16/18 15:55 Dose: Not Given Sodium Chloride (Normal Saline) 1,000 mls @ 125 mls/hr IV ASDIRECTED [facility] Stop: 03/16/18 23:19 Last Admin: 03/16/18 15:20 Dose: 125 mls/hr Sodium Chloride (Normal Saline) 1,000 mls @ 50 mls/hr IV ASDIRECTED [facility] Last Admin: 03/19/18 07:43 Dose: 50 mls/hr Insulin Aspart (Novolog) 0 unit SUBCUT WITHMEALSANDBED [facility]; Protocol Last Admin: 03/18/18 11:56 Dose: 4 unit Insulin Aspart (Novolog) Confirm Administered Dose 4,000 unit .ROUTE .[facility] ONE Stop: 03/17/18 11:52 Last Admin: 03/17/18 11:52 Dose: Not Given Iopamidol (Isovue-370 (76%)) 100 ml IVPUSH ONETIME ONE Stop: 03/20/18 09:53 Last Admin: 03/20/18 11:00 Dose: 100 ml Isosorbide Mononitrate (Imdur) 30 mg PO DAILY [facility] Last Admin: 03/21/18 08:24 Dose: 30 mg Labetalol HCl (Normodyne) 20 mg IVPUSH ONETIME ONE; Protocol Stop: 03/16/18 12:51 Last Admin: 03/16/18 15:51 Dose: Not Given Lisinopril (Prinivil) 20 mg PO DAILY [facility] Lisinopril (Prinivil) 20 mg PO DAILY [facility] Last Admin: 03/21/18 08:21 Dose: 20 mg Metformin HCl (Glucophage) 1,000 mg PO BIDMEALS [facility] Last Admin: 03/20/18 07:54 Dose: 1,000 mg Metoprolol Tartrate (Lopressor) 5 mg IVPUSH ONETIME ONE Stop: 03/16/18 20:45 Last Admin: 03/16/18 21:34 Dose: 5 mg Neomycin/Polymyxin/Bacitracin (Triple Antibiotic Oint) Confirm Administered Dose 1 each .ROUTE .STK-MED ONE Stop: 03/16/18 14:11 Last Admin: 03/16/18 15:55 Dose: Not Given Neomycin/Polymyxin/Bacitracin (Triple Antibiotic Oint) 1 each TOP ONETIME ONE Stop: 03/16/18 15:55 Last Admin: 03/16/18 15:10 Dose: 1 each Non-Formulary Medication (Lisinopril/Hydrochlorothiazide [Zestoretic 20-12.5 Mg Tablet]) 1 each PO DAILY [facility] Last Admin: 03/16/18 18:29 Dose: Not Given - Exam General: Reports: Alert, Oriented (person and place), Cooperative HEENT: Reports: Mucous Membr. Moist/[place] Neck: Reports: Supple Lungs: Reports: Clear to Auscultation, Normal Respiratory Effort Cardiovascular: Reports: Regular Rate, Regular Rhythm GI/Abdominal Exam: Normal Bowel Sounds, Soft, Non-Tender Skin: Reports: Warm, Dry Neurological: Reports: No New Focal Deficit
== END 2018-03-21 11:45 | disposition home or self-care (01) | DRG 690 ==
LOC: CC.ED 12:02 → UNDOADMIN 15:19 → CC.MS 15:19
PROVIDERS: ADMIT Nurse Practitioner Family; ATTEND Family Medicine
PROC: 02HV33Z Insertion of Infusion Device into Superior Vena Cava, Percutaneous Approach (ICD-10-PCS; principal; 2018-03-16)
DX: N39.0 Urinary tract infection, site not specified (principal); B95.4 Other streptococcus as the cause of diseases classified elsewhere; E86.0 Dehydration; I10 Essential (primary) hypertension; E11.9 Type 2 diabetes mellitus without complications; F03.90 Unspecified dementia, unspecified severity, without behavioral disturbance, psychotic disturbance, mood disturbance, and anxiety; R32 Unspecified urinary incontinence; Z88.8 Allergy status to other drugs, medicaments and biological substances; Z79.82 Long term (current) use of aspirin; R41.82 Altered mental status, unspecified; R47.81 Slurred speech; Z79.84 Long term (current) use of oral hypoglycemic drugs; Z79.899 Other long term (current) drug therapy
CPT/HCPCS: 36415; 70450; 71045; 74175; 80048; 80305-QW; 81001; 82375; 82550; 82607; 82962; 84484; 85025; 85610; 85730; 86140; 87086; 87088; 93005; 96374; 99285; A9270-GY; J0696; J1642; J1650; J3490; J7030; Q9967